=== PATIENT | male | born 1975 | race Caucasian/White ===

== ENCOUNTER 2018-08-13 07:19 | Day surgery (SDC) | payer OTHER ==
[~2018-08-13] VITALS: Ht 175.3 cm; Wt 86.2 kg
[~2018-08-13 07:19] MED LIST: ASPIRIN EC325 MG PO; LEVOTHYROXINE50 MCG PO; METOPROLOL SUCC25 MG PO
[2018-08-13] MEDS ORDERED: VITAMIN D50000 UNI1 PO (07:38)
--- NOTE | 2018-08-13 09:11 | NUR ---
08/13/18 0911 Meron Salazar 0852- PT ARRIVES TO PACU ALERT AND ORIENTED WILL FALL INSTANTLY TO SLEEP WHEN NOT BEING TALKED TO. OXYGEN SAT MID 90'S ON RA. 0857- OXYGEN SAT DECREASED TO 89% ON RA. EDUCATED PT TO TAKE DEEP BREATHS. OXYGEN SAT INCREASED TO 97% ON RA. 0902- PT REMINDED TO TAKE DEEP BREATHS FOR OXYGEN 89-91% ON RA. PT IS ABLE TO INCREASE SATS TO HIGH 90'S WITH DEEP BREATHS. 0906- PT TURNED TO HIS BACK AND HEAD OF BED ELEVATED. REPORTS NO NAUSEA OR DIZZINESS WITH THIS.
--- NOTE | 2018-08-14 09:27 | OR ---
[facility] [address], [place] [address] Signed DATE OF OPERATION: 08/13/2018 SURGEON: Yfn Aponte MD PREOPERATIVE DIAGNOSES: 1. Episodic bright red rectal bleeding without pain. 2. Family history of colon polyps. POSTOPERATIVE DIAGNOSES: 1. Hyperplastic polyps x2 at 15 cm. 2. Internal hemorrhoidal disease. PROCEDURE(S) PERFORMED: Total colonoscopy to cecum with cold morcellation polypectomy x2. ANESTHESIA: Intravenous sedation, fentanyl 150 mcg, and Versed 4 mg. INDICATION: This 42-year-old white man is patient of Dr. Orellana and has had episodes of rectal bleeding; recently it has ceased. He has family history of polyps in his sister and questionable family history of colon cancer. He was admitted at this time to undergo colonoscopy. Understands the risks of bleeding, infection, perforation. FINDINGS: The prep was good. Complete colonoscopy was undertaken to the cecum without question. There were 2 small polyps, probably hyperplastic, located in the rectosigmoid, both of them near each other, they were excised completely. Retroflexed view confirmed internal hemorrhoidal change of at least one hemorrhoidal column. There was no sign of active bleeding or other problem there. DESCRIPTION OF PROCEDURE: The patient was brought to the endoscopy suite and placed in lateral decubitus position and given intravenous sedation to the point of slurred speech and nystagmus. Digital rectal examination was normal. An Olympus video colonoscope was passed in the rectum and manipulated throughout the colon, ultimately intubating the cecum itself, the ileocecal valve and appendiceal orifice were normal. The scope was withdrawn carefully from that site. Examination throughout showed no sign of abnormality until the rectosigmoid at about 15 cm, where a Electronically Signed By: YFN APONTE MD 08/14/18 0927 PATIENT NAME: YESIKA MCGUIRE OPERATIVE REPORT DATE OF : 75 REPORT #: [id number] PHYSICIAN: YFN APONTE MD PCP: BENEDICTO ORELLANA DO REPORT IS CONFIDENTIAL AND NOT TO BE RELEASED WITHOUT AUTHORIZATION [facility] [address], [place] [address] Signed two small hyperplastic appearing polyps were noted there, both excised with cold morcellation technique. Retroflexed view of the rectum showed an internal hemorrhoidal complex, likely the source of the bleeding all along. The scope was straightened, withdrawn, and removed. The patient was taken to the recovery room in good condition. CONCLUDING DIAGNOSIS: Rectal bleeding, likely related to internal hemorrhoidal disease. PLAN: Recommend Citrucel fiber supplement and high-fiber diet. If recurrent bleeding, he will let me know and we will plan for hemorrhoidal banding in the office setting. MD KAITLIN Rosenberg/ESDRAS /[id number] cc: Dr. rOellana Copies: ~ Electronically Signed By: YFN APONTE MD 08/14/18 0927 PATIENT NAME: YESIKA MCGUIRE OPERATIVE REPORT DATE OF : 75 REPORT #: [id number] PHYSICIAN: YFN APONTE MD PCP: BENEDICTO ORELLANA DO REPORT IS CONFIDENTIAL AND NOT TO BE RELEASED WITHOUT AUTHORIZATION
== END 2018-08-13 09:46 | disposition home or self-care (01) ==
LOC: OPS 07:19 → DS 07:19 → OPS 08:30 → DS 08:30 → OPS 09:46
PROVIDERS: Surgery
PROC: 0DBE8ZZ Excision of Large Intestine, Via Natural or Artificial Opening Endoscopic (ICD-10-PCS; principal; 2018-08-13 08:30)
DX: K63.5 Polyp of colon (principal); K64.8 Other hemorrhoids; F41.9 Anxiety disorder, unspecified; K21.9 Gastro-esophageal reflux disease without esophagitis; F17.210 Nicotine dependence, cigarettes, uncomplicated; Z80.0 Family history of malignant neoplasm of digestive organs; Z83.71 Family history of colonic polyps
CPT/HCPCS: 99153; G0500; J2250; J3010; J7120